=== PATIENT | male | born 1965 | race Caucasian/White ===

== ENCOUNTER 2023-03-03 15:51 | Emergency (ER) | payer BC ==
[~2023-03-03] VITALS: Ht 193 cm; Wt 158.0 kg
[~2023-03-03 15:51] MED LIST: AMLODIPINE10 MG; AMLODIPINE10 MG PO; AMLODIPINE5 MG PO; HYDROCHLORO25 MG/TAB PO; HYZAAR1 TA1; HYZAAR1 TA1 PO; LOSARTAN POT50 MG PO; METHADONE10 M1 PO; METHOCARBAMOL500 MG PO; METO50TA52 PO; NAPROSYN500 MG OR; OXYCOD/APAP1 TA4; OXYCOD/APAP1 TA4 PO; TRAZODONE50 MG PO; ZOLPIDEM5 M1 PO
[2023-03-03 16:12] VITALS: BP 113/80
[2023-03-03 16:16] VITALS: BP 118/77
[2023-03-03 16:47] LABS: BASO% 0.3 % (0-3); HEMATOCRIT 45.3 % (39.0-50.0); HEMOGLOBIN 15.3 g/dl (14.0-18.0); IMMATURE GRANULOCYTES 0.2 % (0.0-5.0); LYMPH% 21.8 % (15-41); MEAN CORPUSCULAR HGB 32.4 pG CALC (26.0-32.0); MEAN CORPUSCULAR HGB CONC 33.8 g/dL CAL (32.0-36.0); MONO% 7.3 % (2-13); NEUT# 6.96 thou/uL (1.82-7.42); NEUT% 67.4 % (42-76); RED BLOOD COUNT 4.72 mill/uL (4.70-6.10); RED CELL DISTRI WIDTH 13.3 % (11.5-15.5)
[2023-03-03 17:01] LABS: ALBUMIN 4.6 g/dL (3.2-5.0); ALKALINE PHOSPHATASE 46 u/l (38-126); ANION GAP 15 (6-22 (CALC)); BILIRUBIN, TOTAL 0.6 mg/dL (0.2-1.3); BUN 19 mg/dL (9-20); BUN/CREATININE RATIO 22 (12-20 (CALC)); CARBON DIOXIDE 26 mmol/l (22-30); CHLORIDE 102 mmol/l (95-108); CREATININE 0.9 mg/dL (0.7-1.3); GFR FOR AFR.AMER. > 60 ML/MIN (>=60 (CALC)); GFR OTHER RACES > 60 ML/MIN (>=60 (CALC)); POTASSIUM 3.6 mmol/l (3.5-5.1); SGOT/AST 39 u/l (17-59); SODIUM 139 mmol/l (137-146); TOTAL PROTEIN 8.4 g/dL (6.3-8.2)
[2023-03-03] MEDS ORDERED: AMOX/K CLAV875 M1 PO (18:03)
[2023-03-03] MEDS ORDERED: BACTRIM DS1 TAB PO (18:03)
[2023-03-03 20:04] VITALS: BP 118/77
== END 2023-03-03 20:05 | disposition home or self-care (01) | DRG 603 ==
LOC: ED 15:51
PROVIDERS: Family Medicine
DX: L03.012 Cellulitis of left finger (principal); S61.052A Open bite of left thumb without damage to nail, initial encounter; E11.9 Type 2 diabetes mellitus without complications; W54.0XXA Bitten by dog, initial encounter

== ENCOUNTER 2023-03-05 12:33 | Emergency (ER) | payer BC ==
[~2023-03-05] VITALS: Ht 193 cm; Wt 157.8 kg
[~2023-03-05 12:33] MED LIST changes: +AMOX/K CLAV875 M1 PO; +BACTRIM DS1 TAB PO
[2023-03-05 12:50] VITALS: BP 138/74
[2023-03-05 13:01] VITALS: BP 121/58
== END 2023-03-05 13:04 | disposition home or self-care (01) | DRG 603 ==
LOC: ED 12:33
DX: L03.012 Cellulitis of left finger (principal); S61.052D Open bite of left thumb without damage to nail, subsequent encounter; W54.0XXD Bitten by dog, subsequent encounter